=== PATIENT | male | born 1950 | race Caucasian/White ===

== ENCOUNTER 2018-09-18 08:46 | Emergency (ER) | payer MEDICARE, OTHER ==
[2018-09-18] MEDS: DIAZEPAM 5 MG/ML SYG IM (09:43)
== END 2018-09-18 09:50 | disposition home or self-care (01) ==
LOC: FTE 08:46
DX: M25.512 Pain in left shoulder (principal); Z87.891 Personal history of nicotine dependence
CPT/HCPCS: 96372; 99284-25